=== PATIENT | female | born 1970 | race Caucasian/White ===

== ENCOUNTER 2016-07-03 21:11 | Emergency (ER) | payer OTHER | END 2016-07-03 23:40 | disposition home or self-care (01) | LOC: FER 21:11 | DX: M25.462 Effusion, left knee (principal); I10 Essential (primary) hypertension; Z88.2 Allergy status to sulfonamides; Z88.7 Allergy status to serum and vaccine; Z98.890 Other specified postprocedural states | CPT/HCPCS: 93971; J2930 ==